=== PATIENT | male | born 1970 | race Two or more races ===

== ENCOUNTER 2016-06-26 15:28 | Inpatient (IN) | payer SELFPAY ==
[~2016-06-26] VITALS: Ht 182.9 cm; Wt 114.3 kg
[2016-06-26] MEDS ORDERED: SODIUM CHLORIDE 0.9% 1,000 ML IVB ONE (16:06)
[2016-06-26] MEDS ORDERED: SODIUM CHLORIDE 0.9% 2,000 ML IV ONE (16:15)
[2016-06-26] MEDS ORDERED: PROCHLORPERAZINE EDISYLATE 5 MG/ML 2ML VIAL IV ONE (16:15)
[2016-06-26 16:34] LABS: Basophils # (auto) 0.1 uL; Basophils % (auto) 0.4 % (0.0-2.0); Eosinophils # (auto) 0.1 uL; Eosinophils % (auto) 0.6 % (0.0-7.0); Hematocrit 51.2 % (41.0-53.0); Hemoglobin 17.2 g/dL (13.5-17.5); Lymphocytes # (auto) 1.8 uL; Lymphocytes % (auto) 14.6 % (10.0-50.0); Mean Corpuscular Hemoglobin 29.8 pg (28.0-32.0); Mean Corpuscular Hgb Conc. 33.6 g/dL (32.0-36.0); Mean Corpuscular Volume 88.7 fL (80.0-100.0); Monocytes # (auto) 0.6 uL; Monocytes % (auto) 4.8 % (0.0-12.0); Neutrophils # (auto) 9.9 uL; Neutrophils % (auto) 79.6 % (37.0-80.0); Platelet Count (auto) 233 10^3/uL (140-450); Red Cell Distribution Width 13.3 % (11.6-16.0); White Blood Cell 12.4 10^3/uL (4.4-10.8)
[2016-06-26 16:59] LABS: Albumin 4.2 g/dL (3.4-5.0); Alkaline Phosphatase 100 U/L (45-117); Anion Gap 11 (5-15); Aspartate Aminotransferase 33 U/L (15-37); BUN/Creatinine Ratio 13.4; Bilirubin, Total 0.6 mg/dL (0.2-1.0); Blood Urea Nitrogen 15 mg/dL (7-18); Calcium 9.6 mg/dL (8.5-10.1); Carbon Dioxide 26 mmol/L (21-32); Chloride 102 mmol/L (98-107); GFR African American 92 mL/min; GFR Non-African American 76 mL/min; Glucose 199 mg/dL (74-106); Magnesium 2.5 mg/dL (1.6-2.6); Potassium 4.4 mmol/L (3.5-5.1); Sodium 139 mmol/L (136-145); Total Protein 8.2 g/dL (6.4-8.2)
[2016-06-26] MEDS ORDERED: DEXTROSE (50%) 50ML SYRG IV PRN (17:45)
[2016-06-26] MEDS ORDERED: LORazepam 0.5 MG TAB PO PRN (17:45)
[2016-06-26] MEDS ORDERED: PROMETHAZINE HCL 25 MG/ML 1ML IV PRN (17:45)
[2016-06-26] MEDS ORDERED: HYDROcodone-ACET 5/325MG TAB PO PRN (17:45)
[2016-06-26] MEDS ORDERED: MORPHINE SULF INJ 2 MG/ML SYRINGE 1ML IV PRN (17:45)
[2016-06-26] MEDS ORDERED: LACTULOSE 20Gm/30ML SOLN PO PRN (17:45)
[2016-06-26] MEDS ORDERED: ALBUTEROL SULF 2.5 MG/0.5ML(0.5%) NEB SOLN NEB PRN (17:45)
[2016-06-26] MEDS ORDERED: NITROGLYCERIN 0.4 MG SL TAB SL PRN (17:45)
[2016-06-26] MEDS ORDERED: TEMAZEPAM 15 MG CAP PO PRN (17:45)
[2016-06-26 17:50] LABS: Lactic Acid w/Reflex 5.2 mmol/L (0.4-2.0)
[2016-06-26] MEDS: ALBUTEROL SULF 2.5 MG/0.5ML(0.5%) NEB SOLN NEB SCH (18:00)
[2016-06-26 18:17] LABS: REFLEX LACTIC ACID YES OR NO YES
[2016-06-26] MEDS ORDERED: FAMOTIDINE (10MG/ML) 2ML VL IV ONE (19:00)
[2016-06-26] MEDS: SODIUM CHLORIDE 0.9% 1,000 ML IV SCH (19:29)
[2016-06-26] MEDS: metroNIDAZOLE 500MG/100ML 100 ML IV SCH (19:29)
[2016-06-26] MEDS: ACCU-CHEK COMFORT CURVE STRIP VI SCH (19:33)
[2016-06-26 19:48] LABS: Temperature: 23.9 C (20.0-25.0)
[2016-06-26] MEDS ORDERED: cefTRIAXone 1GM/50ML D5W 50 ML IV ONE (20:00)
[2016-06-26 20:04] LABS: INR 0.99 (0.9-1.15); Partial Thromboplastin Time 24.3 sec (22.64-33.71); Prothrombin Time 10.7 sec (9.37-12.3)
[2016-06-26 20:05] LABS: Lactic Acid w/Reflex 4.5 mmol/L (0.4-2.0)
[2016-06-26 20:11] LABS: REFLEX LACTIC ACID YES OR NO YES
[2016-06-26 20:20] VITALS: BP 170/108
[2016-06-26] MEDS: InsuLIN REG 1unit/0.01ml Soln (100units/ml) SC SCH (20:32)
[2016-06-26] MEDS ORDERED: WARFARIN SODIUM 10 MG TAB PO ONE (21:00)
[2016-06-26] MEDS: ENOXAPARIN SOD 100 MG/1 ML SYRINGE SC SCH (21:21)
[2016-06-26] MEDS: METOPROLOL TARTRATE 25 MG TAB PO SCH (21:23)
[2016-06-26 21:29] LABS: Urine Bilirubin Negative (Negative); Urine Blood Negative /uL (Negative); Urine Color Yellow (Yellow); Urine Glucose TRACE mg/dL (Normal); Urine Ketone Negative (Negative); Urine Nitrite Negative (Negative); Urine RBC <1 /hpf (0 - 3); Urine Urobilinogen Normal (Negative); Urine pH 7.5 (5.0-8.0)
[2016-06-26 22:00] VITALS: BP 145/81
[2016-06-26] MEDS: MORPHINE SULF INJ 2 MG/ML SYRINGE 1ML IV PRN (22:25)
[2016-06-26 22:34] LABS: Lactic Acid w/Reflex 2.7 mmol/L (0.4-2.0)
[2016-06-26 22:36] LABS: REFLEX LACTIC ACID YES OR NO NO
[2016-06-27] VITALS (7 sets, daily range): BP systolic 123–145; BP diastolic 76–96
[2016-06-27] MEDS: metroNIDAZOLE 500MG/100ML 100 ML IV SCH ×3 (00:01→12:55)
[2016-06-27] MEDS: SODIUM CHLORIDE 0.9% 1,000 ML IV SCH ×3 (00:01→17:37)
[2016-06-27] MEDS: ACCU-CHEK COMFORT CURVE STRIP VI SCH ×3 (00:01→12:00)
[2016-06-27] MEDS: ALBUTEROL SULF 2.5 MG/0.5ML(0.5%) NEB SOLN NEB SCH ×4 (01:57→18:38)
[2016-06-27] MEDS: InsuLIN REG 1unit/0.01ml Soln (100units/ml) SC SCH ×3 (06:00→12:00)
[2016-06-27 06:36] LABS: Basophils # (auto) 0 uL; Basophils % (auto) 0.3 % (0.0-2.0); Eosinophils # (auto) 0 uL; Eosinophils % (auto) 0.1 % (0.0-7.0); Hematocrit 51.8 % (41.0-53.0); Hemoglobin 17.4 g/dL (13.5-17.5); Lymphocytes # (auto) 1.3 uL; Lymphocytes % (auto) 9.9 % (10.0-50.0); Mean Corpuscular Hemoglobin 30.2 pg (28.0-32.0); Mean Corpuscular Hgb Conc. 33.6 g/dL (32.0-36.0); Mean Corpuscular Volume 89.7 fL (80.0-100.0); Mean Platelet Volume 10.1 fL (7.4-10.4); Monocytes # (auto) 0.9 uL; Monocytes % (auto) 6.6 % (0.0-12.0); Neutrophils # (auto) 11.1 uL; Neutrophils % (auto) 83.1 % (37.0-80.0); Platelet Count (auto) 247 10^3/uL (140-450); Red Cell Distribution Width 13.9 % (11.6-16.0); White Blood Cell 13.3 10^3/uL (4.4-10.8)
[2016-06-27 06:45] LABS: INR 1.06 (0.9-1.15); Partial Thromboplastin Time 28.2 sec (22.64-33.71); Prothrombin Time 11.4 sec (9.37-12.3)
[2016-06-27 06:55] LABS: Potassium 4.1 mmol/L (3.5-5.1)
[2016-06-27 06:56] LABS: Albumin 3.6 g/dL (3.4-5.0); BUN/Creatinine Ratio 12.5; Bilirubin, Total 0.8 mg/dL (0.2-1.0); Calcium 8.4 mg/dL (8.5-10.1); Total Protein 7.5 g/dL (6.4-8.2)
[2016-06-27 08:18] LABS: B-Type Natriuretic Peptide 99.2 pg/mL (0-100)
[2016-06-27] MEDS: cefTRIAXone 1GM/50ML D5W 50 ML IV SCH (08:26)
[2016-06-27] MEDS: ENOXAPARIN SOD 100 MG/1 ML SYRINGE SC SCH ×2 (08:26→22:23)
[2016-06-27] MEDS: AZITHROMYCIN 500MG/D5W 250ML 250 ML IV SCH (10:51)
[2016-06-27] MEDS: FAMOTIDINE (10MG/ML) 2ML VL IV SCH ×2 (10:51→22:21)
[2016-06-27] MEDS: ENALAPRIL MALEATE 10 MG TAB PO SCH (10:52)
[2016-06-27] MEDS: ASPirin 81 mg TAB PO SCH (10:52)
[2016-06-27] MEDS: METOPROLOL TARTRATE 25 MG TAB PO SCH ×2 (10:53→22:21)
[2016-06-27] MEDS ORDERED: IOHEXOL 350 MG/ML 100ML IJ ONE ×2 (16:29→16:53)
[2016-06-27] MEDS ORDERED: METOPROLOL TARTRATE 1MG/1ML-5ML VIAL IV ONE (16:33)
[2016-06-27] MEDS ORDERED: NITROGLYCERIN 0.4 MG SL TAB SL ONE (16:33)
[2016-06-27] MEDS ORDERED: WARFARIN SODIUM 10 MG TAB PO ONE (17:00)
[2016-06-27] MEDS: ACETAMINOPHEN 500 MG TAB PO PRN (18:39)
[2016-06-27] MEDS: ATORVASTATIN 20 MG TAB PO SCH (22:22)
[2016-06-28] VITALS (7 sets, daily range): BP systolic 149–162; BP diastolic 89–104
[2016-06-28] MEDS: ALBUTEROL SULF 2.5 MG/0.5ML(0.5%) NEB SOLN NEB SCH ×4 (00:45→18:29)
[2016-06-28 05:48] LABS: Basophils # (auto) 0 uL; Basophils % (auto) 0.4 % (0.0-2.0); Eosinophils # (auto) 0.1 uL; Eosinophils % (auto) 0.7 % (0.0-7.0); Hemoglobin 16.4 g/dL (13.5-17.5); Lymphocytes # (auto) 2.4 uL; Mean Corpuscular Hemoglobin 30.4 pg (28.0-32.0); Mean Corpuscular Hgb Conc. 34.9 g/dL (32.0-36.0); Mean Corpuscular Volume 87.1 fL (80.0-100.0); Mean Platelet Volume 9.6 fL (7.4-10.4); Monocytes # (auto) 0.6 uL; Monocytes % (auto) 5.9 % (0.0-12.0); Neutrophils # (auto) 6.5 uL; Platelet Count (auto) 205 10^3/uL (140-450); Red Cell Distribution Width 13.7 % (11.6-16.0); White Blood Cell 9.5 10^3/uL (4.4-10.8)
[2016-06-28 06:03] LABS: Partial Thromboplastin Time 32.5 sec (22.64-33.71)
[2016-06-28 06:04] LABS: INR 1.43 (0.9-1.15); Prothrombin Time 15.4 sec (9.37-12.3)
[2016-06-28 06:22] LABS: BUN/Creatinine Ratio 10.6; Calcium 8.3 mg/dL (8.5-10.1); Magnesium 2.1 mg/dL (1.6-2.6); Potassium 3.6 mmol/L (3.5-5.1)
[2016-06-28] MEDS: SODIUM CHLORIDE 0.9% 1,000 ML IV SCH (07:55)
[2016-06-28] MEDS: ENOXAPARIN SOD 100 MG/1 ML SYRINGE SC SCH (08:37)
[2016-06-28] MEDS: cefTRIAXone 1GM/50ML D5W 50 ML IV SCH (08:37)
[2016-06-28] MEDS: ACETAMINOPHEN 500 MG TAB PO PRN ×2 (08:43→15:18)
[2016-06-28] MEDS: FAMOTIDINE (10MG/ML) 2ML VL IV SCH ×2 (11:55→21:53)
[2016-06-28] MEDS: ENALAPRIL MALEATE 10 MG TAB PO SCH (11:55)
[2016-06-28] MEDS: ASPirin 81 mg TAB PO SCH (11:56)
[2016-06-28] MEDS: METOPROLOL TARTRATE 25 MG TAB PO SCH (11:56)
[2016-06-28] MEDS: AZITHROMYCIN 500MG/D5W 250ML 250 ML IV SCH (11:57)
[2016-06-28] MEDS ORDERED: WARFARIN SODIUM 2.5 MG TAB PO ONE (17:00)
[2016-06-28] MEDS: METOPROLOL TARTRATE 50 MG TAB PO SCH (21:52)
[2016-06-28] MEDS: ATORVASTATIN 20 MG TAB PO SCH (21:53)
[2016-06-29] VITALS (7 sets, daily range): BP systolic 137–167; BP diastolic 74–111
[2016-06-29 06:40] LABS: Partial Thromboplastin Time 30.8 sec (22.64-33.71)
[2016-06-29 06:48] LABS: INR 1.45 (0.9-1.15); Prothrombin Time 15.7 sec (9.37-12.3)
[2016-06-29] MEDS: ALBUTEROL SULF 2.5 MG/0.5ML(0.5%) NEB SOLN NEB SCH ×4 (06:52→18:17)
[2016-06-29] MEDS: ASPirin 81 mg TAB PO SCH (10:00)
[2016-06-29] MEDS: FAMOTIDINE (10MG/ML) 2ML VL IV SCH ×2 (10:05→21:52)
[2016-06-29] MEDS: METOPROLOL TARTRATE 50 MG TAB PO SCH ×2 (10:06→21:51)
[2016-06-29] MEDS: ACETAMINOPHEN 500 MG TAB PO PRN (14:07)
[2016-06-29] MEDS: MORPHINE SULF INJ 2 MG/ML SYRINGE 1ML IV PRN (15:50)
[2016-06-29] MEDS ORDERED: IOHEXOL 350 MG/ML 100ML IJ ONE (16:06)
[2016-06-29] MEDS ORDERED: WARFARIN SODIUM 2.5 MG TAB PO ONE (17:00)
[2016-06-29] MEDS: hydrALAZINE HCL 20 MG/ML VL IV PRN (17:41)
[2016-06-29] MEDS: ATORVASTATIN 20 MG TAB PO SCH (21:52)
[2016-06-30 03:01] VITALS: BP 140/80
[2016-06-30 04:38] VITALS: BP 145/94
[2016-06-30 05:57] LABS: Basophils # (auto) 0 uL; Basophils % (auto) 0.5 % (0.0-2.0); Eosinophils # (auto) 0.1 uL; Eosinophils % (auto) 1.7 % (0.0-7.0); Hematocrit 49.5 % (41.0-53.0); Hemoglobin 16.7 g/dL (13.5-17.5); Lymphocytes # (auto) 2.4 uL; Lymphocytes % (auto) 28.1 % (10.0-50.0); Mean Corpuscular Hemoglobin 29.6 pg (28.0-32.0); Mean Corpuscular Hgb Conc. 33.8 g/dL (32.0-36.0); Mean Corpuscular Volume 87.5 fL (80.0-100.0); Mean Platelet Volume 9.9 fL (7.4-10.4); Monocytes # (auto) 0.8 uL; Neutrophils # (auto) 5.1 uL; Neutrophils % (auto) 60.7 % (37.0-80.0); Platelet Count (auto) 198 10^3/uL (140-450); Red Cell Distribution Width 13.3 % (11.6-16.0); White Blood Cell 8.4 10^3/uL (4.4-10.8)
[2016-06-30] MEDS: ALBUTEROL SULF 2.5 MG/0.5ML(0.5%) NEB SOLN NEB SCH ×3 (06:07→19:39)
[2016-06-30 06:15] LABS: Partial Thromboplastin Time 29.5 sec (22.64-33.71)
[2016-06-30 06:16] LABS: INR 1.29 (0.9-1.15); Prothrombin Time 13.9 sec (9.37-12.3)
[2016-06-30 06:40] LABS: Albumin 3.5 g/dL (3.4-5.0); BUN/Creatinine Ratio 13.6; Bilirubin, Total 0.5 mg/dL (0.2-1.0); Calcium 8.7 mg/dL (8.5-10.1); Magnesium 2.3 mg/dL (1.6-2.6); Potassium 3.5 mmol/L (3.5-5.1)
[2016-06-30 08:00] VITALS: BP 147/94
[2016-06-30 08:36] VITALS: BP 147/94
[2016-06-30] MEDS: ASPirin 81 mg TAB PO SCH (10:43)
[2016-06-30] MEDS: METOPROLOL TARTRATE 50 MG TAB PO SCH ×2 (10:44→21:55)
[2016-06-30] MEDS: FAMOTIDINE (10MG/ML) 2ML VL IV SCH ×2 (10:44→21:54)
[2016-06-30 12:06] VITALS: BP 152/96
[2016-06-30] MEDS ORDERED: WARFARIN SODIUM 10 MG TAB PO ONE (17:00)
[2016-06-30] MEDS: ATORVASTATIN 20 MG TAB PO SCH (21:54)
[2016-06-30 22:00] VITALS: BP 151/89
[2016-07-01] MEDS: ALBUTEROL SULF 2.5 MG/0.5ML(0.5%) NEB SOLN NEB SCH ×5 (01:30→23:53)
[2016-07-01 04:42] VITALS: BP 145/99
[2016-07-01 06:49] LABS: Basophils # (auto) 0 uL; Basophils % (auto) 0.6 % (0.0-2.0); DEFINITIVE VIEW TRANSMISSION; Eosinophils # (auto) 0.2 uL; Eosinophils % (auto) 2.2 % (0.0-7.0); Hematocrit 53.4 % (41.0-53.0); Lymphocytes # (auto) 2.2 uL; Lymphocytes % (auto) 27.5 % (10.0-50.0); Mean Corpuscular Hemoglobin 29.7 pg (28.0-32.0); Mean Corpuscular Hgb Conc. 33.7 g/dL (32.0-36.0); Mean Platelet Volume 10.1 fL (7.4-10.4); Monocytes # (auto) 0.7 uL; Monocytes % (auto) 8.2 % (0.0-12.0); Neutrophils # (auto) 4.9 uL; Neutrophils % (auto) 61.5 % (37.0-80.0); Platelet Count (auto) 209 10^3/uL (140-450); Red Cell Distribution Width 13.3 % (11.6-16.0)
[2016-07-01 07:05] LABS: BUN/Creatinine Ratio 12.9; Calcium 8.5 mg/dL (8.5-10.1); Magnesium 2.4 mg/dL (1.6-2.6)
[2016-07-01 07:25] LABS: INR 1.81 (0.9-1.15); Prothrombin Time 19.5 sec (9.37-12.3)
[2016-07-01 08:00] VITALS: BP 156/89
[2016-07-01] MEDS: MORPHINE SULF INJ 2 MG/ML SYRINGE 1ML IV PRN (08:26)
[2016-07-01 09:00] VITALS: BP 156/89
[2016-07-01] MEDS: METOPROLOL TARTRATE 50 MG TAB PO SCH ×2 (10:10→21:52)
[2016-07-01] MEDS: FAMOTIDINE (10MG/ML) 2ML VL IV SCH ×2 (10:10→21:52)
[2016-07-01] MEDS: ASPirin 81 mg TAB PO SCH (10:10)
[2016-07-01 13:00] VITALS: BP 149/97
[2016-07-01] MEDS ORDERED: WARFARIN SODIUM 2.5 MG TAB PO ONE (17:00)
[2016-07-01 17:28] VITALS: BP 138/77
[2016-07-01 21:30] VITALS: BP 139/80
[2016-07-01] MEDS: ATORVASTATIN 20 MG TAB PO SCH (21:52)
[2016-07-02 05:00] VITALS: BP 136/88
[2016-07-02] MEDS: ALBUTEROL SULF 2.5 MG/0.5ML(0.5%) NEB SOLN NEB SCH (06:17)
[2016-07-02 06:20] LABS: Basophils # (auto) 0 uL; Basophils % (auto) 0.4 % (0.0-2.0); Eosinophils # (auto) 0.2 uL; Eosinophils % (auto) 2.6 % (0.0-7.0); Hematocrit 52.7 % (41.0-53.0); Hemoglobin 17.9 g/dL (13.5-17.5); Lymphocytes # (auto) 2.2 uL; Lymphocytes % (auto) 27.6 % (10.0-50.0); Mean Corpuscular Hemoglobin 30.2 pg (28.0-32.0); Mean Corpuscular Volume 88.8 fL (80.0-100.0); Monocytes # (auto) 0.7 uL; Monocytes % (auto) 8.4 % (0.0-12.0); Platelet Count (auto) 209 10^3/uL (140-450); Red Cell Distribution Width 13.9 % (11.6-16.0); White Blood Cell 8.1 10^3/uL (4.4-10.8)
[2016-07-02 06:32] LABS: Partial Thromboplastin Time 33.6 sec (22.64-33.71)
[2016-07-02 06:42] LABS: Prothrombin Time 24.1 sec (9.37-12.3)
[2016-07-02 06:43] LABS: INR 2.23 (0.9-1.15)
[2016-07-02 06:58] LABS: Albumin 3.8 g/dL (3.4-5.0); Bilirubin, Direct 0.1 mg/dL (0-0.2); Bilirubin, Total 0.6 mg/dL (0.2-1.0); Total Protein 7.5 g/dL (6.4-8.2)
[2016-07-02 08:00] VITALS: BP 134/90
[2016-07-02] MEDS ORDERED: fentaNYL CITRATE 100 MCG/2 ML VL ONE (08:28)
[2016-07-02] MEDS ORDERED: MIDAZOLAM HCL 1MG/1ML-2 ML VIAL ONE (08:29)
[2016-07-02] MEDS ORDERED: LIDOCAINE VISCOUS 2% 15ML UD ONE (08:29)
[2016-07-02] MEDS ORDERED: NALOXONE HCL 0.4 MG/ML VIAL ONE (08:33)
[2016-07-02] MEDS: hydrALAZINE HCL 20 MG/ML VL IV PRN (10:31)
[2016-07-02] MEDS: FAMOTIDINE (10MG/ML) 2ML VL IV SCH (11:03)
[2016-07-02] MEDS: ASPirin 81 mg TAB PO SCH (11:03)
[2016-07-02] MEDS: METOPROLOL TARTRATE 50 MG TAB PO SCH (11:04)
[2016-07-02 11:10] LABS: Anticardiolipin IgM Antibody <9 MPL U/mL (0-12)
[2016-07-02 12:08] LABS: Protein S Antigen Free 89 % (57-157); Proten S Antigen Total 110 % (60-150)
[2016-07-02] MEDS ORDERED: WARFARIN SODIUM 2 MG TAB PO ONE (17:00)
== END 2016-07-02 12:35 | disposition left against medical advice (07) | DRG 64 ==
LOC: EDBD 15:28 → ER 15:30 → TELE 15:31 → TELE-EAST 20:20
PROVIDERS: ADMIT Internal Medicine; ATTEND Internal Medicine
PROC: B24BZZ4 Ultrasonography of Heart with Aorta, Transesophageal (ICD-10-PCS; principal; 2016-07-02)
DX: I63.9 Cerebral infarction, unspecified (principal); I50.43 Acute on chronic combined systolic (congestive) and diastolic (congestive) heart failure; I48.1 Persistent atrial fibrillation; F15.90 Other stimulant use, unspecified, uncomplicated; I48.0 Paroxysmal atrial fibrillation; E86.1 Hypovolemia; S00.03XA Contusion of scalp, initial encounter; K40.90 Unilateral inguinal hernia, without obstruction or gangrene, not specified as recurrent; Z82.49 Family history of ischemic heart disease and other diseases of the circulatory system; Z83.3 Family history of diabetes mellitus; Z91.19 Patient's noncompliance with other medical treatment and regimen; R73.9 Hyperglycemia, unspecified; D72.829 Elevated white blood cell count, unspecified; E78.5 Hyperlipidemia, unspecified; E86.0 Dehydration; I11.0 Hypertensive heart disease with heart failure; I34.0 Nonrheumatic mitral (valve) insufficiency; F19.10 Other psychoactive substance abuse, uncomplicated
CPT/HCPCS: 36415; 70450; 70496; 70551; 71020; 74176; 75574; 76705; 80048; 80053; 80061; 80076; 81001; 81241; 82150; 82550; 82607; 82746; 82962; 83036; 83605; 83690; 83735; 83880; 84443; 84484; 85025; 85301; 85302; 85303; 85305; 85306; 85379; 85610; 85613; 85652; 85670; 85705; 85730; 85732; 86141; 86147; 86850; 86900; 86901; 87040; 87086; 87400; 93005; 93306; 93312; 93886; 94640; 94761; 95819; 96374; 96375; G0434; J0696; J2250; J3490